=== PATIENT | female | born 1960 | race African-American/Black ===

== ENCOUNTER 2017-01-11 12:24 | Day surgery (SDC) | payer OTHER ==
[~2017-01-11] VITALS: Ht 170.2 cm; Wt 116.1 kg
[~2017-01-11 12:24] MED LIST: AUGMENTIN875 MG PO; CENTRUM COMPLE1 EACH PO; DESYREL100 MG PO; ERGOCALCIF50000 UNIT PO; FLEXERIL10 MG PO; FUROSEMIDE20 MG PO; GRALISE600 MG PO; HYDROCHLOROTHIA25 MG PO; KEFLEX500 MG PO; LISINOPRIL40 MG PO; LO-DOSE ASPIRIN81 M1 PO; LOW DOSE ASPIRI81 M2 PO; METFORMIN HCL500 MG PO; MOTRIN800 MG PO; NAPROSYN500 MG PO; NEURONTIN300 MG PO; PERCOCET; PERCOCET 5/31 TABLET PO; PERCOCET 7.51 TABLET PO; PROZAC10 MG PO; ULTRAM50 MG PO; VALTREX1000 MG PO; VYVANSE40 MG PO; ZESTRIL20 MG PO; ZOFRAN ODT8 MG PO; cholesterol med
[2017-01-11 13:03] VITALS: BP 150/92
[2017-01-11 13:15] LABS: POINT-OF-CARE METER ID UU14174212
[2017-01-11 14:01] LABS: METH RESISTANT S AUREUS PCR POSITIVE (NEGATIVE)
[2017-01-11 14:07] LABS: PROBE CHECK PASS
[2017-01-11 15:54] LABS: POINT-OF-CARE USER ID 515036437
[2017-01-11 17:00] VITALS: BP 164/99
[2017-01-11 18:00] VITALS: BP 136/87
== END 2017-01-11 18:02 | disposition home or self-care (01) ==
LOC: SDC 12:24
PROVIDERS: Podiatrist Foot & Ankle Surgery
DX: M20.12 Hallux valgus (acquired), left foot (principal); M25.572 Pain in left ankle and joints of left foot; G47.30 Sleep apnea, unspecified; I10 Essential (primary) hypertension; E11.9 Type 2 diabetes mellitus without complications; M19.90 Unspecified osteoarthritis, unspecified site; Z86.14 Personal history of Methicillin resistant Staphylococcus aureus infection; Z82.49 Family history of ischemic heart disease and other diseases of the circulatory system; Z83.3 Family history of diabetes mellitus; Z82.61 Family history of arthritis
CPT/HCPCS: 82948; 87641; C1713; J0690; J1170; J1885; J2175; J2250; J2765; J3010; S0020

== ENCOUNTER 2017-02-25 16:24 | Emergency (ER) | payer OTHER ==
[~2017-02-25] VITALS: Ht 170.2 cm; Wt 114.0 kg
[2017-02-25 17:17] LABS: HEMATOCRIT 37.4 % (36.0-46.0); MCH 27.7 PG (29.0-34.0); MCHC 32.9 G/DL (30.0-36.0); MCV 84.2 FL (83-99); MEAN PLAT.VOLUME 10.3 uM^3 (9.5-12.4); PLATELET COUNT 232 K/uL (156-360); RED BLOOD COUNT 4.44 M/uL (3.80-5.20); WHITE BLOOD COUNT 7.6 K/uL (4.1-10.2)
[2017-02-25 17:25] LABS: CHLORIDE 109 mEq/L (99-109); POTASSIUM 3.1 mEq/L (3.7-5.4); SODIUM 143 mEq/L (136-147)
[2017-02-25 17:27] LABS: GLUCOSE 144 mg/dL (70-99)
[2017-02-25 17:28] LABS: ANION GAP 10 MEQ/L (2-14)
[2017-02-25 17:31] LABS: GFR ESTIMATE (CALCULATED) 54 mL/min/
[2017-02-25 17:32] LABS: UREA NITROGEN (BUN) 13 mg/dL (9-23)
[2017-02-25 18:18] LABS: D-DIMER ELISA 1.57 mg/L FEU (< 0.57)
[2017-02-25] MEDS ORDERED: MOTRIN800 MG PO (20:52)
[2017-02-25] MEDS ORDERED: VIBRAMYCIN100 MG PO (20:52)
[2017-02-25] MEDS ORDERED: NORCO 7.5/321 TABLET PO (20:52)
[2017-02-25 21:27] VITALS: BP 176/106
== END 2017-02-25 21:26 | disposition home or self-care (01) ==
LOC: EME 16:24
DX: R59.0 Localized enlarged lymph nodes (principal); I71.9 Aortic aneurysm of unspecified site, without rupture; I10 Essential (primary) hypertension; E11.9 Type 2 diabetes mellitus without complications; Z79.84 Long term (current) use of oral hypoglycemic drugs; Z79.82 Long term (current) use of aspirin; Z87.891 Personal history of nicotine dependence
CPT/HCPCS: 71020; 71275; 80048; 85027; 85379; 93005; 99281; 99285; J1885; J3010; J7030

== ENCOUNTER 2017-05-30 16:06 | Emergency (ER) | payer OTHER ==
[~2017-05-30] VITALS: Ht 170.2 cm; Wt 111.4 kg
[~2017-05-30 16:06] MED LIST changes: +NORCO 7.5/321 TABLET PO; +VIBRAMYCIN100 MG PO
[2017-05-30 18:28] VITALS: BP 119/90
== END 2017-05-30 18:28 | disposition home or self-care (01) ==
LOC: EME 16:06
DX: M79.672 Pain in left foot (principal); G89.18 Other acute postprocedural pain; M79.89 Other specified soft tissue disorders; I10 Essential (primary) hypertension; E11.9 Type 2 diabetes mellitus without complications; Z79.84 Long term (current) use of oral hypoglycemic drugs; Z87.891 Personal history of nicotine dependence
CPT/HCPCS: 93971; 99281; 99284

== ENCOUNTER 2017-11-05 12:20 | Day surgery (SDC) | payer OTHER ==
[~2017-11-05] VITALS: Ht 170.2 cm; Wt 100.7 kg
[~2017-11-05 12:20] MED LIST changes: +ALDACTONE25 MG PO; +ATORVASTATIN CA20 MG PO; +MIRTAZAPINE30 MG PO
== END 2017-11-05 13:50 | disposition home or self-care (01) ==
LOC: PAIN 12:20 → SDC 12:45 → PAIN 12:45
PROVIDERS: Anesthesiology Pain Medicine
DX: M47.22 Other spondylosis with radiculopathy, cervical region (principal); M50.11 Cervical disc disorder with radiculopathy, high cervical region; G89.29 Other chronic pain; M48.02 Spinal stenosis, cervical region; F41.8 Other specified anxiety disorders; Z79.82 Long term (current) use of aspirin; Z79.84 Long term (current) use of oral hypoglycemic drugs
CPT/HCPCS: 82948; J1100; J2250; J3010

== ENCOUNTER 2017-12-03 12:07 | Day surgery (SDC) | payer OTHER ==
[~2017-12-03] VITALS: Ht 170.2 cm; Wt 100.7 kg
[~2017-12-03 12:07] MED LIST changes: -PROZAC10 MG PO; +PROZAC20 MG PO; +XANAX1 MG PO
[2017-12-03 13:00] LABS: BASOPHIL (%) 0.5 % (0-1); EOSINOPHIL (%) 2.2 % (0-5); EOSINOPHIL COUNT 0.1 K/uL (0-0.3); HEMATOCRIT 38.3 % (36.0-46.0); HEMOGLOBIN 12.5 G/DL (11.9-15.5); IMMATURE GRANULOCYTE (%) 0.2 % (0.0-0.7); LYMPHOCYTE (%) 36.4 % (15-42); LYMPHOCYTE COUNT 2.2 K/uL (1.0-2.8); MCH 27.1 PG (29.0-34.0); MCHC 32.6 G/DL (30.0-36.0); MCV 83.1 FL (83-99); MONOCYTE (%) 7.1 % (3-12); MONOCYTE COUNT 0.4 K/uL (0-0.8); NEUTROPHIL (%) 53.6 % (45-76); NEUTROPHIL COUNT 3.2 K/uL (1.8-6.4); PLATELET COUNT 252 K/uL (156-360); RBC DIS.WIDTH-CV 14.7 % (11.8-14.6); RBC DIS.WIDTH-SD 44.9 % (39-53); RED BLOOD COUNT 4.61 M/uL (3.80-5.20)
[2017-12-03 13:22] LABS: CHLORIDE 105 MEQ/L (99-109); CREATININE 0.9 MG/DL (0.6-1.3); GFR ESTIMATE (CALCULATED) > 59 mL/min/; GLUCOSE 103 mg/dL (70-99); POTASSIUM 3.6 MEQ/L (3.7-5.4); SODIUM 139 MEQ/L (136-147); UREA NITROGEN (BUN) 16 mg/dL (9-23)
[2017-12-03 15:19] LABS: HEMOGLOBIN 11.6 G/DL (11.9-15.5); MCH 27.2 PG (29.0-34.0); MCHC 33.1 G/DL (30.0-36.0); PLATELET COUNT 229 K/uL (156-360); RBC DIS.WIDTH-CV 14.5 % (11.8-14.6); RBC DIS.WIDTH-SD 43.3 % (39-53); RED BLOOD COUNT 4.27 M/uL (3.80-5.20); WHITE BLOOD COUNT 4.7 K/uL (4.1-10.2)
[2017-12-03 15:33] LABS: ALBUMIN 3.6 G/DL (3.2-4.8); CHLORIDE 105 MEQ/L (99-109); POTASSIUM 3.2 MEQ/L (3.7-5.4); SODIUM 139 MEQ/L (136-147)
[2017-12-03 15:38] LABS: ALKALINE PHOSPHATASE 85 IU/L (3-129); ALT (GPT) 11 IU/L (3-49); AST (GOT) 16 IU/L (2-34); CREATININE 0.8 MG/DL (0.6-1.3); GFR ESTIMATE (CALCULATED) > 59 mL/min/; GLUCOSE 133 mg/dL (70-99); TOTAL PROTEIN 6.5 G/DL (6.4-8.3); UREA NITROGEN (BUN) 14 mg/dL (9-23)
[2017-12-03 15:38] LABS: ALBUMIN 3.9 G/DL (3.2-4.8); ALKALINE PHOSPHATASE 96 IU/L (3-129); ALT (GPT) 12 IU/L (3-49); AST (GOT) 19 IU/L (2-34); TOTAL BILIRUBIN 0.9 MG/DL (0.0-1.0); TOTAL PROTEIN 7.3 G/DL (6.4-8.3)
[2017-12-03 15:42] LABS: TROP-I INTERPRETATION NEGATIVE; TROPONIN-I < 0.01 ng/mL (0.0-0.30)
== END 2017-12-03 15:31 | disposition other institution (70) ==
LOC: PAIN 12:07 → SDC 13:00 → PAIN 15:31
PROVIDERS: Anesthesiology; Anesthesiology Pain Medicine; Student in an Organized Health Care Education/Training Program
DX: M47.812 Spondylosis without myelopathy or radiculopathy, cervical region (principal); M50.23 Other cervical disc displacement, cervicothoracic region; G89.4 Chronic pain syndrome; I10 Essential (primary) hypertension; R51 Headache; E11.9 Type 2 diabetes mellitus without complications; E78.5 Hyperlipidemia, unspecified; Z79.82 Long term (current) use of aspirin; Z79.84 Long term (current) use of oral hypoglycemic drugs
CPT/HCPCS: 80048; 80053; 82948; 83605; 84484; 85025; 85027; 87040; 93005; J0360; J1100; J1170; J1885; J2060; J2250; J3010

== ENCOUNTER 2017-12-03 14:56 | Observation (INO) | payer OTHER ==
[~2017-12-03] VITALS: Ht 170.2 cm; Wt 113.5 kg
[2017-12-03 15:30] VITALS: BP 111/58
[2017-12-03 16:30] LABS: BASOPHIL (%) 0.7 % (0-1); EOSINOPHIL COUNT 0.1 K/uL (0-0.3); HEMATOCRIT 34.7 % (36.0-46.0); HEMOGLOBIN 11.6 G/DL (11.9-15.5); IMMATURE GRANULOCYTE (%) 0.4 % (0.0-0.7); LYMPHOCYTE (%) 41.7 % (15-42); LYMPHOCYTE COUNT 1.9 K/uL (1.0-2.8); MCH 27.4 PG (29.0-34.0); MCHC 33.4 G/DL (30.0-36.0); MONOCYTE (%) 7.8 % (3-12); MONOCYTE COUNT 0.4 K/uL (0-0.8); NEUTROPHIL (%) 47.4 % (45-76); NEUTROPHIL COUNT 2.2 K/uL (1.8-6.4); PLATELET COUNT 238 K/uL (156-360); RBC DIS.WIDTH-CV 14.6 % (11.8-14.6); RBC DIS.WIDTH-SD 43.3 % (39-53); RED BLOOD COUNT 4.23 M/uL (3.80-5.20); WHITE BLOOD COUNT 4.6 K/uL (4.1-10.2)
[2017-12-03 16:34] LABS: ALBUMIN 3.6 G/DL (3.2-4.8); CHLORIDE 104 MEQ/L (99-109); POTASSIUM 3.1 MEQ/L (3.7-5.4); SODIUM 137 MEQ/L (136-147)
[2017-12-03 16:39] LABS: HDL CHOLESTEROL 67 MG/DL (Desirable>=50); LDL CHOLESTEROL 91 mg/dL (Desirable<100); NON-HDL CHOLESTEROL 102 mg/dL (Desirable<160); TOTAL CHOLESTEROL 169 mg/dL (Desirable<200); TRIGLYCERIDES 55 MG/DL (Normal: <150)
[2017-12-03 16:40] LABS: ALKALINE PHOSPHATASE 86 IU/L (3-129); ALT (GPT) 11 IU/L (3-49); AST (GOT) 16 IU/L (2-34); CREATININE 0.7 MG/DL (0.6-1.3); GFR ESTIMATE (CALCULATED) > 59 mL/min/; GLUCOSE 136 mg/dL (70-99); TOTAL PROTEIN 6.6 G/DL (6.4-8.3); UREA NITROGEN (BUN) 14 mg/dL (9-23)
[2017-12-03 20:15] VITALS: BP 117/72
[2017-12-03 21:27] LABS: TROP-I INTERPRETATION NEGATIVE; TROPONIN-I < 0.01 ng/mL (0.0-0.30)
[2017-12-04 00:37] VITALS: BP 130/70
[2017-12-04 02:52] LABS: TROP-I INTERPRETATION NEGATIVE; TROPONIN-I 0.02 ng/mL (0.0-0.30)
[2017-12-04 04:21] VITALS: BP 142/73
[2017-12-04 06:43] VITALS: BP 136/89
[2017-12-04 07:04] VITALS: BP 124/77
[2017-12-04 09:44] LABS: TROP-I INTERPRETATION NEGATIVE; TROPONIN-I 0.02 ng/mL (0.0-0.30)
[2017-12-04 10:18] LABS: ALBUMIN 3.8 G/DL (3.2-4.8); ALKALINE PHOSPHATASE 91 IU/L (3-129); ALT (GPT) 12 IU/L (3-49); AST (GOT) 15 IU/L (2-34); CHLORIDE 107 MEQ/L (99-109); CREATININE 1.1 MG/DL (0.6-1.3); GFR ESTIMATE (CALCULATED) > 59 mL/min/; GLUCOSE 115 mg/dL (70-99); SODIUM 142 MEQ/L (136-147); TOTAL PROTEIN 7.1 G/DL (6.4-8.3); UREA NITROGEN (BUN) 20 mg/dL (9-23)
[2017-12-04 10:20] LABS: POTASSIUM 4.4 MEQ/L (3.7-5.4); TOTAL BILIRUBIN 0.6 MG/DL (0.0-1.0)
[2017-12-04 12:02] VITALS: BP 181/91
== END 2017-12-04 12:23 | disposition home or self-care (01) ==
LOC: ENRESERV 14:56 → 5WEST 14:56 → ENRESERV 15:00 → 5WEST 15:31
PROVIDERS: Student in an Organized Health Care Education/Training Program
DX: R07.9 Chest pain, unspecified (principal); Z98.890 Other specified postprocedural states; I10 Essential (primary) hypertension; E11.9 Type 2 diabetes mellitus without complications; E78.5 Hyperlipidemia, unspecified; G89.29 Other chronic pain; M54.9 Dorsalgia, unspecified; Z90.710 Acquired absence of both cervix and uterus; Z82.3 Family history of stroke; Z82.49 Family history of ischemic heart disease and other diseases of the circulatory system; Z80.3 Family history of malignant neoplasm of breast; Z91.018 Allergy to other foods; Z79.82 Long term (current) use of aspirin; Z79.84 Long term (current) use of oral hypoglycemic drugs
CPT/HCPCS: 71046; 71275; 80053; 80061; 84484; 85025 91; 85379; G0378; J1650; J2270; J7120